=== PATIENT | male | born 1975 | race Caucasian/White ===

== ENCOUNTER 2020-11-12 20:44 | Emergency (ER) | payer OTHER ==
[~2020-11-12] VITALS: Ht 175.3 cm; Wt 99.8 kg
[2020-11-12] MEDS ORDERED: CEPHALEXIN500 MG PO (21:18)
[2020-11-12 22:14] VITALS: BP 138/88
== END 2020-11-12 22:15 | disposition home or self-care (01) ==
LOC: M.ERS 20:44
DX: S61.011A Laceration without foreign body of right thumb without damage to nail, initial encounter (principal); F17.210 Nicotine dependence, cigarettes, uncomplicated; W26.8XXA Contact with other sharp object(s), not elsewhere classified, initial encounter; Y93.89 Activity, other specified; Y92.89 Other specified places as the place of occurrence of the external cause; Y99.8 Other external cause status